=== PATIENT | female | born 1990 | race African-American/Black ===

== ENCOUNTER 2019-04-21 23:33 | Emergency (ER) | payer SELFPAY ==
[2019-04-21] MEDS ORDERED: Bupivacaine 0.5% 10 ML VIAL ONE (23:51)
[2019-04-21] MEDS ORDERED: Ketorolac Tromethamine 30 MG/ML VIAL ONE (23:51)
== END 2019-04-22 00:13 | disposition home or self-care (01) ==
LOC: ERS 23:33
DX: K03.81 Cracked tooth (principal); K02.9 Dental caries, unspecified
CPT/HCPCS: 64400; 96372; J1885; J3490

== ENCOUNTER 2024-03-24 10:09 | Emergency (ER) | payer MEDICAID, SELFPAY | END 2024-03-24 11:09 | disposition short-term general hospital (02) | LOC: ERS 10:09 | DX: O47.1 False labor at or after 37 completed weeks of gestation (principal); Z3A.40 40 weeks gestation of pregnancy ==

== ENCOUNTER 2025-05-25 14:53 | Emergency (ER) | payer MEDICAID, SELFPAY | END 2025-05-25 15:35 | disposition home or self-care (01) | LOC: ERS 14:53 | DX: B34.9 Viral infection, unspecified (principal); H66.92 Otitis media, unspecified, left ear; H60.92 Unspecified otitis externa, left ear | CPT/HCPCS: 87428; 99283 ==